=== PATIENT | male | born 1980 | race Hispanic/Latino ===

== ENCOUNTER 2017-09-09 19:25 | Emergency (ER) | payer BC ==
[2017-09-09] MEDS ORDERED: Povidone Iodine Oint 10% Foilpak UD ONE (19:49)
[2017-09-09 20:01] LABS: BASO # 0.1 K/uL (0.0-0.2); BASO % 0.5 % (0.0-2.0); EOS # 0.1 K/uL (0.0-0.7); EOS % 1.2 % (0.0-4.0); HEMATOCRIT 39.1 % (35.0-51.0); LYMPH # 4.3 K/uL (1.0-4.3); LYMPH % 39.5 % (20.0-40.0); MEAN CELL VOLUME 65.6 fl (80.0-94.0); MEAN CORPUSCULAR HEMOGLOBIN 21.1 pg (27.0-31.0); MEAN CORPUSCULAR HGB CONC 32.2 g/dL (33.0-37.0); MEAN PLATELET VOLUME 7.1 fl (7.2-11.7); MONO # 0.8 K/uL (0.0-0.8); MONO % 7.2 % (0.0-10.0); NEUT # 5.6 K/uL (1.8-7.0); NEUT % 51.6 % (50.0-75.0); NRBC % 0.3 % (0.0-0.0); PLATELET COUNT 252 K/uL (130-400); RED CELL DISTRIBUTION WIDTH 14.6 % (11.5-14.5); WHITE BLOOD COUNT 10.9 K/uL (4.8-10.8)
[2017-09-09 20:13] LABS: ALB/GLOB RATIO 1.7 (1.0-2.1); ALCOHOL SERUM < 10 mg/dl (0-10); ALKALINE PHOSPHATASE 73 U/L (38-126); ALT/SGPT 34 U/L (21-72); AST/SGOT 37 U/L (17-59); BILIRUBIN,TOTAL 0.8 mg/dl (0.2-1.3); BLOOD UREA NITROGEN 20 mg/dl (9-20); CALCIUM 8.9 mg/dL (8.4-10.2); CARBON DIOXIDE 22 mmol/L (22-30); CHLORIDE 103 mmol/L (98-107); GFR AFRICAN-AMERICAN > 60; GLUCOSE,RANDOM 121 mg/dL (75-110); SODIUM 140 mmol/l (132-148); TOTAL PROTEIN 7.5 G/DL (6.3-8.2)
--- NOTE | 2017-09-09 20:17 | ED PDOC ---
HPI: Psych/Substance Abuse Time Seen by Provider: 09/09/17 19:38 Chief Complaint (Nursing): Substance Abuse Chief Complaint (Provider): Medical/Psychiatric Clearance ED Caveat: Intoxicated History Per: Patient, EMS History/Exam Limitations: no limitations Additional Complaint(s): 37 year old male with history of HIV brought in to the ED by [employer] for psychiatric and medical clearance. The patient was found by [employer] after observed driving erratically and apparently under the influence of an illicit substance per [employer]. Patient noted to be extremely repetitive and his affect appears to be hypervigilant. Patient denies substance abuse. Past Medical History Reviewed: Historical Data, Nursing Documentation, Vital Signs Vital Signs: Last Vital Signs Temp 97.5 F L 09/09/17 19:28 Pulse 92 H 09/09/17 19:28 Resp 18 09/09/17 19:28 BP 129/91 H 09/09/17 19:28 Pulse Ox 95 09/09/17 19:28 - Medical History PMH: HIV Denies: Chronic Kidney Disease - Family History Family History: States: No Known Family Hx - Home Medications Home Medications: Ambulatory Orders Medication Instructions Recorded Doxycycline Hyclate [Doxycycline] 100 mg PO BID #14 tab 03/02/15 Valacyclovir HCl [Valtrex] 1,000 mg PO BID #10 tab 03/02/15 - Allergies Allergies/Adverse Reactions: Allergies Allergy/AdvReac Type Severity Reaction Status Date / Time No Known Allergies Allergy Verified 03/02/15 01:01 Review of Systems Review Of Systems: ROS cannot be obtained secondary to pt's inabilty to answer questions. (Intoxicated) Physical Exam - Reviewed Nursing Documentation Reviewed: Yes Vital Signs Reviewed: Yes - Physical Exam Appears: Positive for: Well, Non-toxic, No Acute Distress Head Exam: Positive for: ATRAUMATIC, NORMOCEPHALIC Skin: Positive for: Normal Color, Warm, DRY Eye Exam: Positive for: EOMI, Normal appearance, PERRL Neck: Positive for: Normal, Painless ROM, Supple Cardiovascular/Chest: Positive for: Regular Rate, Rhythm. Negative for: Murmur Respiratory: Positive for: Normal Breath Sounds. Negative for: Respiratory Distress Gastrointestinal/Abdominal: Positive for: Normal Exam, Soft. Negative for: Tenderness Back: Positive for: Normal Inspection. Negative for: L CVA Tenderness, R CVA Tenderness, Other (midline tenderness) Extremity: Positive for: Normal ROM. Negative for: Pedal Edema, Deformity Neurologic/Psych: Positive for: Alert, Gait (normal), Other (No nystagmus, Speech pressured, Patient appears internally preoccupied.). Negative for: Motor /Sensory Deficits - Laboratory Results Result Diagrams: 09/09/17 19:57 09/09/17 19:57 - ECG O2 Sat by Pulse Oximetry: 95 Medical Decision Making Medical Decision Making: Impression: 37 year old male brought in for medical and psychiatric clearance in setting of possible substance abuse. Plan: -Labs -Crisis eval Patient evaluated and cleared by crisis. Labs reviewed, positive for amphetamines and marijuana. Patient is stable for discharge in police custody. Diagnosis: Polysubstance abuse. Scribe Attestation: Documented by Marlon Bae, acting as a scribe for Bello Cano MD Provider Scribe Attestation: All medical record entries made by the Scribe were at my direction and personally dictated by me. I have reviewed the chart and agree that the record accurately reflects my personal performance of the history, physical exam, medical decision making, and the department course for this patient. I have also personally directed, reviewed, and agree with the discharge instructions and disposition. Disposition - Clinical Impression Clinical Impression: Substance abuse - Disposition Disposition: Routine/Home Disposition Time: 21:00 Condition: STABLE Additional Instructions: Patient is medically and psychiatrically stable for incarceration Instructions: Polysubstance Abuse (ED) Forms: General Specific ([place])
[2017-09-09 20:39] LABS: EOSINOPHIL 1 % (0-7); NEUTROPHIL 57 % (42-75); REACTIVE LYMPHOCYTES 1 % (0-0); TOTAL CELLS COUNTED 100
[2017-09-09 20:41] LABS: LARGE PLATELETS PRESENT
[2017-09-09 21:11] VITALS: BP 126/67; PULSE 86; RESP 16; TEMP 97.9
[2017-09-09 21:18] LABS: POTASSIUM 3.6 MMOL/L (3.6-5.0)
[2017-09-09 23:36] VITALS: O2SAT 95
== END 2017-09-09 21:12 | disposition home or self-care (01) ==
LOC: H.ER 19:25
DX: F19.10 Other psychoactive substance abuse, uncomplicated (principal); Z21 Asymptomatic human immunodeficiency virus [HIV] infection status
CPT/HCPCS: 80053; 85025; 99282; G0480